=== PATIENT | male | born 1940 | race Caucasian/White ===

== ENCOUNTER 2018-08-23 08:08 | Emergency (ER) | payer OTHER ==
[~2018-08-23] VITALS: Ht 182.9 cm; Wt 88.5 kg
[2018-08-23] MEDS ORDERED: ALODIPINE (08:45)
== END 2018-08-23 14:35 | disposition home or self-care (01) ==
LOC: ER 08:08
DX: E16.1 Other hypoglycemia (principal); R41.82 Altered mental status, unspecified; R53.1 Weakness